=== PATIENT | female | born 1990 | race Two or more races ===

== ENCOUNTER → 2025-01-31 | Outpatient (CLI) | payer OTHER, SELFPAY ==
--- NOTE | 2025-01-31 15:00 | XR_ITS ---
Examination: CT pelvis without intravenous contrast. 2-D sagittal and coronal reconstructions. Date and time of exam:January 31, 2025 1526 hours INDICATIONS: Lower pelvic pain several months CTDI: vol (mGy) :7.6 DLP: (mGycm) : 217 Technique: Multiple 3 mm axial sections of the pelvis have been obtained with the 64 slice high resolution scanner. 2-D sagittal and coronal reconstructions. Low dose protocols were performed. One or more of the following dose reduction techniques were used; automated exposure control, adjustment of the mA and/or KV according to patient size, use of iterative reconstruction technique. Findings: 7 x 7 cm mass contiguous with the right fundus of the uterus Anteverted uterus endometrial stripe 8 mm Urinary bladder intact No common iliac, external iliac or common femoral lymphadenopathy Intact osseous structures IMPRESSION: 7 x 7 cm right pelvic mass, recommend transabdominal transvaginal pelvic sonography follow-up
[2025-01-31 15:23] LABS: HCG Qualitative,Urine Negative
== END | disposition home or self-care (01) ==
PROVIDERS: PCP Student in an Organized Health Care Education/Training Program; Referring Provider Student in an Organized Health Care Education/Training Program; Visit Provider Student in an Organized Health Care Education/Training Program
DX: R19.00 Intra-abdominal and pelvic swelling, mass and lump, unspecified site (principal); Z32.00 Encounter for pregnancy test, result unknown
CPT/HCPCS: 72192; 81025